=== PATIENT | male | born 1985 | race African-American/Black ===

== ENCOUNTER 2023-02-12 09:53 | Emergency (ER) | payer SELFPAY ==
[2023-02-12] MEDS ORDERED: droPERidol 5 MG/2 ML SDV IM ONE (10:03)
[2023-02-12] MEDS ORDERED: Midazolam 5 MG/ML SDV IM ONE (10:04)
[2023-02-12 10:46] LABS: BASOPHILS PERCENT AUTO 0.3 % (0.0-1.5); EOSINOPHILS ABSOLUTE AUTO 0.1 K/uL (0.0-0.7); EOSINOPHILS PERCENT AUTO 0.9 % (0.0-7.0); HEMATOCRIT 41.8 % (38.0-50.0); HEMOGLOBIN 12.9 g/dL (13.0-17.0); LYMPHOCYTES ABSOLUTE AUTO 2.7 K/uL (0.6-2.4); LYMPHOCYTES PERCENT AUTO 30.2 % (16.0-40.0); MEAN CORPUSCULAR HEMOGLOBIN 24.6 pg (27.0-32.0); MEAN CORPUSCULAR HGB CONC 30.9 g/dL (31.0-37.0); MEAN CORPUSCULAR VOLUME 79.6 fL (80.0-98.0); MONOCYTES ABSOLUTE AUTO 0.7 K/uL (0.0-0.8); MONOCYTES PERCENT AUTO 7.4 % (0.0-15.0); NEUTROPHILS ABSOLUTE AUTO 5.5 K/uL (1.4-5.7); NEUTROPHILS PERCENT AUTO 61.2 % (48.0-80.0); NRBC ABSOLUTE 0 K/uL; PLATELET COUNT,PLT 349 K/uL (150-400); RED BLOOD CELL COUNT 5.25 M/uL (4.50-5.90); WHITE BLOOD CELL COUNT,WBC 8.95 K/uL (4.0-11.0)
[2023-02-12 11:06] LABS: A/G RATIO 0.8 (0.9-1.6); ALBUMIN 3.7 g/dL (3.4-5.0); BILIRUBIN TOTAL 0.8 mg/dL (0.2-1.0); CALCIUM 8.7 mg/dL (8.5-10.1); CARBON DIOXIDE,CO2 26.9 mmol/L (21.0-32.0); CREATININE 1.4 mg/dL (0.8-1.3); EST CRCL DRUG DOSING (CG) 66.89 mL/min; POTASSIUM,K 3.1 mmol/L (3.5-5.1); PROTEIN TOTAL,TP 8.2 g/dL (6.4-8.2); TSH ULTRASENSITIVE 1.76 uIU/mL (0.36-3.74)
[2023-02-12 12:05] VITALS: BP 138/82; PULSE 84
== END 2023-02-12 12:04 ==
LOC: MW.ED 09:53
DX: F10.129 Alcohol abuse with intoxication, unspecified (principal); I10 Essential (primary) hypertension; J45.909 Unspecified asthma, uncomplicated; Y90.5 Blood alcohol level of 100-119 mg/100 ml
CPT/HCPCS: 36415; 80053; 80307; 84443; 85025; 93005; 96372; 99284; J1790; J2250; 93010; 99283